=== PATIENT | male | born 1995 | race African-American/Black ===

== ENCOUNTER 2021-03-21 16:29 | Emergency (ER) | payer OTHER ==
[~2021-03-21] VITALS: Ht 180.3 cm; Wt 70.3 kg
== END 2021-03-21 21:12 | disposition home or self-care (01) ==
LOC: ER 16:29
DX: R07.89 Other chest pain (principal); M94.0 Chondrocostal junction syndrome [Tietze]

== ENCOUNTER 2021-07-20 22:46 | Emergency (ER) | payer OTHER ==
[~2021-07-20] VITALS: Ht 180.3 cm; Wt 71.7 kg
[2021-07-21] MEDS ORDERED: ACETAMINOPHEN650 M2 PO (02:22)
[2021-07-21] MEDS ORDERED: AZITHROMYCIN500 MG PO (02:22)
[2021-07-21] MEDS ORDERED: ACETAMINOPHEN650 M2 (05:37)
== END 2021-07-21 04:40 | disposition home or self-care (01) ==
LOC: ER 22:46
DX: B34.9 Viral infection, unspecified (principal); Z03.818 Encounter for observation for suspected exposure to other biological agents ruled out

== ENCOUNTER 2025-07-13 14:11 | Emergency (ER) | payer OTHER ==
[~2025-07-13] VITALS: Ht 180.3 cm; Wt 72.6 kg
[~2025-07-13 14:11] MED LIST: ACETAMINOPHEN650 M2; ACETAMINOPHEN650 M2 PO; AZITHROMYCIN500 MG PO
[2025-07-13] MEDS ORDERED: KETOROLAC TROMETHAMINE 30 MG VIAL IV ONE (15:45)
[2025-07-13] MEDS ORDERED: ONDANSETRON HCL 2 MG/ML VIAL IV ONE (15:45)
[2025-07-13] MEDS ORDERED: 0.9 % SODIUM CHLORIDE 1,000 ML IV ONE (15:45)
[2025-07-13] MEDS ORDERED: FAMOTIDINE/PF 20 MG/2 ML VIAL IV ONE (15:45)
[2025-07-13] MEDS ORDERED: FAMOTIDINE/PF 20 MG/2 ML VIAL ONE (15:52)
[2025-07-13] MEDS ORDERED: KETOROLAC TROMETHAMINE 30 MG VIAL ONE (15:52)
[2025-07-13] MEDS ORDERED: ONDANSETRON HCL 2 MG/ML VIAL ONE (15:52)
[2025-07-13 16:25] LABS: BASO % 0.3 % (0.1-1.2); EOS # 0.06 (0.04-0.54); EOS % 0.9 % (0.7-7.0); LYMPH # 2.13 (1.18-3.74); LYMPH % 30.8 % (19.3-53.1); MEAN PLATELET VOLUME 9.90 fl (9.4-12.4); MONO # 0.38 (0.24-0.82); MONO % 5.5 % (4.7-12.5); NEUT # 4.30 (1.56-6.13); NEUT % 62.1 % (34.0-71.1); RED CELL DISTRIBUTION WIDTH 12.9 % (11.6-14.4)
[2025-07-13 16:59] LABS: INR 1.04
[2025-07-13 17:07] LABS: ALT/SGPT 28.0 U/L (12-78); AST/SGOT 21.0 U/L (15-37); BILIRUBIN TOTAL 0.7 mg/dL (0.3-1.2); BUN CREA RATIO 13.0 (7.0-25.0); CREATININE SERUM 1.42 mg/dL (0.70-1.30); GFR 58.54; GLOBULINA 3.3 G/DL (2.4-3.5); GLUCOSE FASTING 134.0 mg/dL (65-100); OSMOLALITY SERUM 285.0 MOSM/KG (275-295)
[2025-07-13 17:09] LABS: URINE APPEARANCE Clear; URINE BILIRRUBIN Negative (NEGATIVE); URINE BLOOD Negative; URINE COLOR Yellow; URINE GLUCOSE Negative (NEGATIVE); URINE KETONE Negative (NEGATIVE); URINE LEUKOCYTE Negative; URINE NITRATE Negative; URINE PROTEIN Negative (NEGATIVE); URINE UROBILINOGEN 0.2 E.U./dl
[2025-07-13 17:14] LABS: URINE BACTERIA 8.3 uL (0.0-1933)
[2025-07-13 17:51] LABS: URINE CAST 0.00 uL (0.0-1.40); URINE EPITHELIAL CELLS 0.6 uL (0.0-38.8); URINE RBC 1.1 uL (0.0-20.8); URINE WBC 0.9 uL (0.0-23.2)
[2025-07-13] MEDS ORDERED: INTESTINEX680 M1 PO (21:29)
[2025-07-13] MEDS ORDERED: SIMETHICONE 125 MG CAPSULE PO ONE (21:30)
== END 2025-07-13 22:10 | disposition home or self-care (01) ==
LOC: ER 14:11
PROVIDERS: General Practice
DX: R10.31 Right lower quadrant pain (principal)